=== PATIENT | female | born 1955 | race Caucasian/White ===

== ENCOUNTER → 2016-11-08 | Outpatient (CLI) | payer OTHER ==
[~2016-11-08] MED LIST: MOTRIN 200200 MG/TAB PO; NO HOME MEDICATIONS; PREMPRO 0.625/21 TAB PO; TYLENOL EXTRA500 M1 PO
== END ==
LOC: MC.RAD 08:20
DX: Z12.31 Encounter for screening mammogram for malignant neoplasm of breast (principal)

== ENCOUNTER → 2018-02-19 | Outpatient (CLI) | payer OTHER | LOC: MC.RAD 07:23 | DX: Z12.31 Encounter for screening mammogram for malignant neoplasm of breast (principal) ==